=== PATIENT | male | born 1980 | race Caucasian/White ===

== ENCOUNTER 2016-03-04 12:41 | Emergency (ER) | payer SELFPAY ==
[~2016-03-04] VITALS: Ht 195.6 cm; Wt 86.0 kg
[2016-03-04 12:44] VITALS: BP 137/75; PULSE 100; RESP 24; TEMP 97.9; O2SAT 98
[2016-03-04] MEDS ORDERED: PRED50 PO (13:58)
[2016-03-04] MEDS ORDERED: CYCL1TAB29 PO (13:58)
[2016-03-04] MEDS ORDERED: IBUP800T23 PO (13:58)
--- NOTE | 2016-03-04 13:58 | PD ---
HPI Chief Complaint: Back/ Neck Pain or Injury Time Seen by Provider: 13:51 Travel History International Travel<30 days: No Contact w/Intl Traveler<30days: No Traveled to known affect area: No History of Present Illness HPI Patient is a 35-year-old male who presented to the emergency department for evaluation of low back and neck pain. Patient states the pain is been ongoing for approximately 4 days. 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 He has been taking 400 mg of ibuprofen every 6 hours with no significant relief in his symptoms. He states his pain is a 7 out of 10 and describes as aching and crampy. Denies any saddle paresthesia, no numbness or tingling in his lower extremities, no incontinence. PFSH Past Medical History Medical History: Denies Significant Hx Social History Alcohol Use: Yes Tobacco Use: Yes Substance Use: No Allergies-Medications (Allergen,Severity, Reaction): Coded Allergies: No Known Allergies (Unverified , 03/04/16) Review of Systems Except as stated in HPI: all other systems reviewed are Neg Musculoskeletal: Positive: Myalgias, Cramping, Pain Physical Exam Narrative GENERAL: Well-nourished, well-developed patient. SKIN: Warm and dry. HEAD: Normocephalic. EYES: No scleral icterus. No injection or drainage. NECK: Supple, trachea midline. No JVD or lymphadenopathy. CARDIOVASCULAR: Regular rate and rhythm without murmurs, gallops, or rubs. RESPIRATORY: Breath sounds equal bilaterally. No accessory muscle use. GASTROINTESTINAL: Abdomen soft, non-tender, nondistended. MUSCULOSKELETAL: No cyanosis, or edema. Tenderness to palpation paraspinal musculature in the lumbar and cervical region bilaterally. 5/5 muscle strength in bilateral lower extremities, patient is neurovascularly intact. Decreased range of motion with rotation of neck to the left and right. No spinal tenderness noted. NEUROLOGICAL: Awake and alert. Cranial nerves II through XII intact. Motor and sensory grossly within normal limits. Five out of 5 muscle strength in all muscle groups. Normal speech. BACK: Nontender without obvious deformity. No CVA tenderness. Data Data Last Documented VS Vital Signs Date Time Temp Pulse Resp B/P Pulse Ox O2 Delivery O2 Flow Rate FiO2 03/04/16 12:44 97.9 100 24 137/75 98 Room Air MDM Medical Decision Making Medical Screen Exam Complete: Yes Emergency Medical Condition: Yes Interpretation(s) Vital Signs Date Time Temp Pulse Resp B/P Pulse Ox O2 Delivery O2 Flow Rate FiO2 03/04/16 12:44 97.9 100 24 137/75 98 Room Air Differential Diagnosis Sprain versus strain versus spasm versus discogenic pain versus other Narrative Course Patient is a 35-year-old male who presents emergency department for evaluation of low back and neck pain that started after laying block. Physical examination is consistent with muscle strain, muscle spasms. Patient is neurologically intact. Patient be given a prescription for ibuprofen, Flexeril , prednisone. He is encouraged to alternate heat and ice to affected area, continue range of motion exercises, avoid bed rest. He is encouraged follow-up with primary care or return to emergency department for any new or worsening symptoms. Patient verbalizes understanding of these instructions. Patient is stable for discharge. Diagnosis Primary Impression: Strain of lumbar paraspinal muscle Qualified Code: S39.012A - Strain of lumbar paraspinal muscle, initial encounter Additional Impressions: Spasm of lumbar paraspinous muscle Cervical paraspinal muscle spasm Referrals: Primary Care Physician Patient Instructions: General Instructions, Muscle Spasm (ED), Muscle Strain ( ED) Additional Instructions: Take medications as directed Alternate heat and ice to affected area, continue range of motion exercises, avoid bed rest, avoid exacerbating activities Follow-up with your primary doctor Return to emergency department for any new or worsening symptoms Med/Other Pt SpecificInfo: Prescription(s) given Scripts Prednisone 50 Mg Tab50 Mg PO DAILY #5 TAB Ref 0 Prov:Dena Christiansen 03/04/16 Ibuprofen 800 Mg [id number] Mg PO Q6HR PRN (PAIN) #40 TAB Ref 0 Prov:Dena Christiansen 03/04/16 Cyclobenzaprine (Flexeril)10 Mg Tab10 Mg PO TID PRN (MUSCLE SPASM) #30 TAB Ref 0 Prov:Dena Christiansen 03/04/16 Disposition: 01 DISCHARGE HOME Condition: Stable Dena Christiansen Mar 04, 2016 13:58
== END 2016-03-04 14:20 | disposition home or self-care (01) ==
LOC: NEPB 12:41
DX: S16.1XXA Strain of muscle, fascia and tendon at neck level, initial encounter (principal); M62.838 Other muscle spasm; Z72.0 Tobacco use
CPT/HCPCS: 99283